=== PATIENT | male | born 1955 | race Caucasian/White ===

== ENCOUNTER 2024-08-20 06:19 | Day surgery (SDC) | payer MEDICARE, MEDICAID ==
[~2024-08-20] VITALS: Ht 165.1 cm; Wt 65.0 kg
[~2024-08-20 06:19] MED LIST: ATOR40TA71 PO; CARV6.2534 PO; CLOP75TA32 PO; FOLI-130 PO; GABA-529 PO; INSU100I56 SQ; NIFE-78 PO; PANT40TA54 PO; PrednisoLONE ACETATE 1% 5 ML OPHTHALMIC SUSPENSION ONE; RINGERS SOLUTION,LACTATED 500 ML IV ONE
[2024-08-20] MEDS: KETOROLAC TROMETHAMINE 0.5% 5 ML OPHTHALMIC SOLUTION OD SCH (06:55)
[2024-08-20] MEDS: CYCLOPENTOLATE HCL 1% 2 ML OPHTHALMIC SOLUTION OD SCH (06:56)
[2024-08-20] MEDS: TETRACAINE HCL/PF 0.5% 4 ML OPHTHALMIC SOLUTION OD SCH (06:57)
[2024-08-20] MEDS: MOXIFLOXACIN HCL 0.5% 3 ML OPHTHALMIC SOLUTION OD SCH (06:57)
[2024-08-20] MEDS: PHENYLEPHRINE HCL 2.5% 2 ML OPHTHALMIC SOLUTION OD SCH (06:57)
[2024-08-20] MEDS ORDERED: PROPARACAINE HCL 0.5% 15 ML OPHTHALMIC SOLUTION OD ONE (07:00)
[2024-08-20] MEDS ORDERED: TROPICAMIDE 1% 2 ML OPHTHALMIC SOLUTION ONE (07:01)
[2024-08-20] MEDS: TROPICAMIDE 1% 2 ML OPHTHALMIC SOLUTION OD SCH (07:02)
[2024-08-20] MEDS: TETRACAINE HCL/PF 0.5% 4 ML OPHTHALMIC SOLUTION OD ONE (07:03)
[2024-08-20] MEDS: POVIDONE-IODINE 5% 30 ML OPHTHALMIC SOLUTION ONE ×2 (07:23→07:29)
[2024-08-20] MEDS: EPINEPHrine 1:1,000 [1 MG/ML] VIAL ONE (07:30)
[2024-08-20] MEDS: LIDOCAINE/PF 1% 2 ML VIAL ONE (07:30)
[2024-08-20] MEDS: BALANCED SALT 15 ML OPHTHALMIC IRRIG.SOLN ONE (07:30)
[2024-08-20 07:35] LABS: GLUCOMETER DEV NAME(LOC) SDS.; GLUCOSE,POINT OF CARE 94 MG/DL (70-110)
[2024-08-20] MEDS: NEOMYCIN/POLYMYXIN B/DEXAMETH 3.5 GM OPHTHALMIC OINTMENT ONE (07:50)
[2024-08-20] MEDS ORDERED: FentaNYL CITRATE PF 100 MCG/2 ML VIAL ONE (12:00)
[2024-08-20] MEDS ORDERED: MIDAZOLAM HCL 2 MG/2 ML VIAL ONE (12:00)
== END 2024-08-20 10:00 | disposition home or self-care (01) ==
LOC: SURGERY 06:19
PROVIDERS: ATTEND Ophthalmology
DX: E11.36 Type 2 diabetes mellitus with diabetic cataract (principal); H25.11 Age-related nuclear cataract, right eye; E78.00 Pure hypercholesterolemia, unspecified; K21.9 Gastro-esophageal reflux disease without esophagitis; I10 Essential (primary) hypertension; Z91.041 Radiographic dye allergy status; Z98.890 Other specified postprocedural states; Z89.422 Acquired absence of other left toe(s); Z89.511 Acquired absence of right leg below knee; Z79.899 Other long term (current) drug therapy
CPT/HCPCS: 66984; 93005; 82962; J0171; J3010; J3490; J2250; J7120; V2632